=== PATIENT | male | born 1970 | race Two or more races ===

== ENCOUNTER 2017-12-01 09:13 | Emergency (ER) | payer OTHER ==
[2017-12-01 09:36] VITALS: BP 118/83; PULSE 105; TEMP 98; BMI 29.2
[2017-12-01] MEDS ORDERED: IBUPROFEN 600 MG TABLET (FP) PO ONE (09:38)
[2017-12-01] MEDS ORDERED: IBUPROFEN 100 MG/5 ML UNIT DOSE CUPS ONE (09:39)
--- NOTE | 2017-12-01 09:42 | PDOC ---
History of Present Illness - General Chief Complaint: Sore Throat Stated Complaint: FEVER, THROAT PAIN Time Seen by Provider: 12/01/17 09:31 History Source: Patient Exam Limitations: No Limitations - History of Present Illness Initial Comments: 12/01/17 09:39 47-year-old male with no past medical history presents to the ED with complaints of sore throat for the past 4 days now associated with runny nose, and mild cough. Patient denies recent travel, recent illness, recent sick contacts. Patient denies smoking history, change in appetite, abdominal pain, shortness of breath or chest pain. Timing/Duration: other Severity: mild Associated Symptoms: reports: cough, fever/chills Past History - Travel Traveled outside of the country in the last 30 days: No - Past Medical History Allergies/Adverse Reactions: Allergies Allergy/AdvReac Type Severity Reaction Status Date / Time No Known Allergies Allergy Verified 12/01/17 09:26 Home Medications: Ambulatory Orders Fexofenadine HCl [Felicity] 180 mg PO DAILY 04/26/15 Ketotifen Fumarate [Zaditor] 5 ml OU BID #1 drops 04/26/15 Tobramycin 0.3% Ophth Soln [Tobrex Ophthalmic Solution -] 2 drop OU Q6HPO #1 drops 04/26/15 CVA: No COPD: No - Suicide/Smoking/Psychosocial Hx Smoking History: Never smoked Patient Lives Alone: No Lives with/in: spouse/SO Review of Systems - Review of Systems Able to Perform ROS?: Yes Constitutional: Yes: Chills, Fever HEENTM: Yes: Nose Congestion, Throat Pain. No: Difficulty Swallowing Respiratory: Yes: Cough Cardiac (ROS): No: Symptoms Reported ABD/GI: No: Symptoms Reported : No: Symptoms Reported Musculoskeletal: No: Symptoms Reported Integumentary: No: Symptoms Reported Neurological: No: Symptoms reported *Physical Exam - Vital Signs Last Vital Signs Temp Pulse Resp BP Pulse Ox 98 F 105 H 20 118/83 95 12/01/17 09:23 12/01/17 09:23 12/01/17 09:23 12/01/17 09:23 12/01/17 09:23 - Physical Exam General Appearance: Yes: Nourished, Appropriately Dressed. No: Apparent Distress HEENT: positive: EOMI, STEFANI, TMs Normal, Pharyngeal Erythema (no exudate. Tonsils 2+ bilateral), Rhinorrhea (Clear bilateral) Neck: positive: Supple. negative: Lymphadenopathy (R), Lymphadenopathy (L) Respiratory/Chest: positive: Lungs Clear, Normal Breath Sounds. negative: Respiratory Distress, Accessory Muscle Use Cardiovascular: positive: Regular Rhythm, Tachycardia. negative: Murmur Gastrointestinal/Abdominal: positive: Soft. negative: Tenderness Integumentary: positive: Normal Color, Warm, Moist Neurologic: positive: Normal Mood/Affect, Motor Strength 5/5 (ambulatory) Medical Decision Making - Medical Decision Making 12/01/17 09:41 Patient with sore throat and fever for the past 4 days. Patient on exam with pharyngeal erythema concerning for strep. Patient ordered for rapid strep and Motrin secondary to complaints and tachycardia likely due to low-grade temp. 12/01/17 10:08 Rapid strep negative. Patient to be discharged home with supportive care which includes pushing fluids and taking Motrin every 6 hours for discomfort. *DC/Admit/Observation/Transfer Diagnosis at time of Disposition: Sore throat (viral) - Discharge Dispostion Disposition: HOME Condition at time of disposition: Good - Referrals - Patient Instructions Printed Discharge Instructions: Sore Throat Additional Instructions: I recommend taking Motrin 600 mg every 8 hours taking plenty of fluids and resting. If symptoms do not improve over the next 2 days please follow-up with your PCP. Otherwise if they worsen he may return to the nearest emergency room. - Post Discharge Activity
== END 2017-12-01 10:24 | disposition home or self-care (01) ==
LOC: JERFT 09:13 → JER 09:13 → EDBD 09:13 → JERFT 10:24
DX: J02.9 Acute pharyngitis, unspecified (principal); B97.89 Other viral agents as the cause of diseases classified elsewhere
CPT/HCPCS: 87070; 87430; 99281-25

== ENCOUNTER 2022-08-25 11:29 | Emergency (ER) | payer OTHER ==
[2022-08-25 11:35] VITALS: BP 117/79; PULSE 73; RESP 18; TEMP 98.3; BMI 29.9
[2022-08-25] MEDS ORDERED: diazePAM 5 MG TABLET PO ONE (12:17)
[2022-08-25] MEDS ORDERED: KETOROLAC TROMETHAMINE 30 MG/1 ML VIAL IM ONE (12:17)
[2022-08-25] MEDS ORDERED: diazePAM 5 MG TABLET ONE (12:29)
[2022-08-25] MEDS ORDERED: KETOROLAC TROMETHAMINE 30 MG/1 ML VIAL ONE (12:29)
== END 2022-08-25 13:15 | disposition home or self-care (01) ==
LOC: JER 11:29 → JERFT 11:29
PROC: 3E0233Z Introduction of Anti-inflammatory into Muscle, Percutaneous Approach (ICD-10-PCS; principal; 2022-08-25)
DX: M54.42 Lumbago with sciatica, left side (principal); M54.41 Lumbago with sciatica, right side
CPT/HCPCS: 99284-25